=== PATIENT | female | born 1980 | race Caucasian/White ===

== ENCOUNTER 2020-01-20 13:42 | Emergency (ER) | payer MEDICAID ==
[~2020-01-20] VITALS: Ht 162.6 cm; Wt 77.9 kg
--- NOTE | 2020-01-20 14:05 | NUR ---
LOCATOR: PT TO ROOM FROM ARIEL CORTEZ
--- NOTE | 2020-01-20 14:05 | NUR ---
CONSULTING ACTUARY: JULIO COLLECTED AND SENT FROM [facility]
--- NOTE | 2020-01-20 14:10 | NUR ---
PT CAME IN [place] BILAT FLANK PAIN X 2 DAYS. PT DENIES PAINFUL URINATION. PT IS RESTING IN [facility]. [facility]A SENT. Addendum: 01/20/[facility] PT STATES SHE HAS PAINFUL URINATION.
[2020-01-20 14:17] LABS: HCG UR SG 1.015 (1.003-1.030); MICROSCOPIC AUTO
[2020-01-20 14:51] LABS: ALBUMIN 3.3 g/dL (3.4-5.0); ANION GAP 5 mmol/L (5-15); CALCIUM 8.7 mg/dL (8.5-10.1); CHLORIDE 110 mmol/L (98-107); CREATININE 0.68 mg/dL (0.55-1.02)
[2020-01-20 15:35] LABS: MEAN CORPUSCULAR HEMOGLOBIN 22.9 pg (27.0-34.8); MEAN CORPUSCULAR HGB CONC 30.7 g/dL (32.4-35.8); MEAN CORPUSCULAR VOLUME 74.7 fL (80-100); RED BLOOD COUNT 4.12 x10^6/uL (3.82-5.3); RED CELL DISTRIBUTION WIDTH 17.3 % (9.6-15.2)
[2020-01-20 15:37] LABS: MEAN PLATELET VOLUME 9.2 fL (7.4-10.4); PLATELET COUNT 394 x10^3/uL (130-400)
[2020-01-20 15:40] LABS: BASOPHILS # (AUTO) 0.01 x10^3/uL (0-0.1); BASOPHILS % (AUTO) 0 % (0-1); EOSINOPHILS # (AUTO) 0.13 x10^3/uL (0-0.4); EOSINOPHILS % (AUTO) 1 % (1-7); LYMPHOCYTES # (AUTO) 2.14 x10^3/uL (1-3.4); LYMPHOCYTES % (AUTO) 21 % (22-44); MD SCAN; MONOCYTES # (AUTO) 0.45 x10^3/uL (0.2-0.8); MONOCYTES % (AUTO) 5 % (2-9); NEUTROPHILS # (AUTO) 7.27 x10^3/uL (1.8-6.8); NEUTROPHILS % (AUTO) 73 % (42-75)
[2020-01-20 15:48] VITALS: BP 106/65
== END 2020-01-20 16:19 | disposition home or self-care (01) ==
LOC: ED 16:15
DX: N30.00 Acute cystitis without hematuria (principal)
CPT/HCPCS: 36415; 80048; 81001; 81025; 82040; 85025; 87077; 87086; 87186; 99283

== ENCOUNTER 2020-11-10 00:53 | Emergency (ER) | payer MEDICAID ==
[~2020-11-10] VITALS: Ht 162.6 cm; Wt 85.0 kg
[2020-11-10 00:54] VITALS: BP 139/82
--- NOTE | 2020-11-10 01:25 | NUR ---
[employer]: NOT IN LOBBY
--- NOTE | 2020-11-10 01:49 | NUR ---
NIL X 2
--- NOTE | 2020-11-10 02:06 | NUR ---
NIL X 3
== END 2020-11-10 02:10 | disposition left against medical advice (07) ==
LOC: ED 02:04
DX: M79.641 Pain in right hand (principal); Z53.21 Procedure and treatment not carried out due to patient leaving prior to being seen by health care provider